=== PATIENT | female | born 1985 | race Two or more races ===

== ENCOUNTER 2018-06-13 18:36 | Emergency (ER) | payer SELFPAY ==
[~2018-06-13] VITALS: Ht 160 cm; Wt 61.2 kg
[2018-06-13] MEDS ORDERED: IBUP-1953 PO (19:04)
--- NOTE | 2018-06-13 20:29 | NUR ---
PATIENT WAS CALLED SEVERAL TIMES IN A SPAN OF 45MINS TO BE PLACED IN ROOM TO BE SEEN BY ERMD. PATIENT WAS NOT PRESENT. PATIENT WAS TRIAGED BUT NOT SEEN BY ERMD
== END 2018-06-13 20:31 | disposition left against medical advice (07) ==
LOC: ER 18:39
DX: Z53.21 Procedure and treatment not carried out due to patient leaving prior to being seen by health care provider (principal)
CPT/HCPCS: A4663